=== PATIENT | male | born 1940 | race Caucasian/White ===

== ENCOUNTER 2019-01-25 05:34 | Day surgery (SDC) | payer MEDICARE, OTHER ==
[~2019-01-25] VITALS: Ht 177.8 cm; Wt 84.0 kg
[~2019-01-25 05:34] MED LIST: AMLO5 PO; ASPI325 PO; ATOR40TA PO; Acidophilus La100 GM; CENTRUM SILVER1 EAC2 PO; CHLO10 PO; CHOL10002; CIME400 PO; CROMNS; ESCI20; FOSI10; HYDACE5 PO; IPRAIS NEB; LISI20 PO; METO25; MONT10T PO; NAPR220 PO; NITR.6SL SL; STIOLTO RESPIMAT4 GM IH
[2019-01-25] MEDS ORDERED: Isosorbide Mono30 MG PO (09:55)
--- NOTE | 2019-01-25 10:30 | NUR ---
10cc air removed from R wrist TR Band. -bleeding or swelling.
--- NOTE | 2019-01-25 11:30 | NUR ---
RIGHT GROIN SITE SOFT AND NON-TENDER. NO BLEEDING OR SWELLING. AT BEDSIDE.
--- NOTE | 2019-01-25 12:30 | NUR ---
PT UP TO THE BATHROOM /C SBA. TOLERATED WELL. -BLEEDING OR SWELLING R GROIN AND WRIST. TR BAND REMOVED FROM R WRIST. PUNCTURE AREA CLEANED WITH NS AND CLOTH DOT DRSG PLACED. R WRIST SPLINT REAPPLIED. PT AND VERBALIZED UNDERSTANDING OF WRITTEN AND VERBAL D/C INST. IV REMOVED. PT TAKEN OUT OF HRT CENTER VIA W/C.
== END 2019-01-25 12:30 | disposition home or self-care (01) ==
LOC: MHTC 05:34
PROC: B205YZZ Plain Radiography of Left Heart using Other Contrast (ICD-10-PCS; principal; 2019-01-25)
PROC: 4A023N7 Measurement of Cardiac Sampling and Pressure, Left Heart, Percutaneous Approach (ICD-10-PCS; principal; 2019-01-25)
PROC: B201YZZ Plain Radiography of Multiple Coronary Arteries using Other Contrast (ICD-10-PCS; principal; 2019-01-25)
PROC: B203YZZ Plain Radiography of Multiple Coronary Artery Bypass Grafts using Other Contrast (ICD-10-PCS; principal; 2019-01-25)
DX: I25.719 Atherosclerosis of autologous vein coronary artery bypass graft(s) with unspecified angina pectoris (principal); I25.119 Atherosclerotic heart disease of native coronary artery with unspecified angina pectoris; F17.210 Nicotine dependence, cigarettes, uncomplicated; E78.00 Pure hypercholesterolemia, unspecified; I10 Essential (primary) hypertension; I25.2 Old myocardial infarction; J44.9 Chronic obstructive pulmonary disease, unspecified; K21.9 Gastro-esophageal reflux disease without esophagitis; I70.90 Unspecified atherosclerosis; F41.9 Anxiety disorder, unspecified; Z79.82 Long term (current) use of aspirin; Z79.899 Other long term (current) drug therapy
CPT/HCPCS: 85347; 93455; 99152; 99153; C1769; C1894; J1644; J2250; J3010; J7030; Q9967

== ENCOUNTER 2020-01-30 10:56 | Inpatient (IN) | payer OTHER, MEDICARE ==
[~2020-01-30] VITALS: Ht 180.3 cm; Wt 78.7 kg
[~2020-01-30 10:56] MED LIST changes: -ASPI325 PO; +ASPI325EC PO; -CENTRUM SILVER1 EAC2 PO; -CHOL10002; +Isosorbide Mono30 MG PO; +MULTI VITAMIN1 EACH PO; +VITAMIN D31000 UNI1 PO
[2020-01-30 12:08] LABS: BASOPHILS ABSOLUTE AUTO 0.05 K/mm3 (0.00-0.23); BASOPHILS PERCENT AUTO 1 % (0-2); EOSINOPHILS ABSOLUTE AUTO 0.22 K/mm3 (0.00-0.68); EOSINOPHILS PERCENT AUTO 3 % (0-6); Hematocrit 45.2 % (37.0-53.0); Hemoglobin 15.1 g/dL (13.5-17.5); IMMATURE GRAN ABSOLUTE AUTO 0.02 K/mm3 (0.00-0.10); IMMATURE GRAN PERCENT AUTO 0 % (0-1); LYMPHOCYTES ABSOLUTE AUTO 1.13 K/mm3 (0.84-5.20); LYMPHOCYTES PERCENT AUTO 17 % (21-46); MONOCYTES ABSOLUTE AUTO 0.46 K/mm3 (0.16-1.47); MONOCYTES PERCENT AUTO 7 % (4-13); Mean Corpuscular HGB 33.4 pg (26.0-34.0); Mean Corpuscular HGB Conc 33.4 g/dL (31.5-36.5); Mean Corpuscular Volume 100 fL (80-100); Mean Platelet Volume 9.1 fL (9.1-12.4); NEUTROPHILS ABSOLUTE AUTO 4.62 K/mm3 (1.96-9.15); NEUTROPHILS PERCENT AUTO 71 % (41-73); Platelet Count 157 K/mm3 (150-400); RDW Coefficient Variation 12.1 % (11.7-14.2); RDW Standard Deviation 45.1 fL (35.1-46.3); Red Blood Cell Count 4.52 M/mm3 (4.30-5.90)
[2020-01-30 12:09] LABS: Source, Urine Voided
[2020-01-30 12:11] LABS: Bilirubin, Urine Neg (Neg); Blood, Urine 3+ (Neg); Glucose Qualitative, Urine Neg (Neg); Ketones, Urine 1+ (Neg); Leukocyte Esterase, Urine Neg (Neg); Nitrite, Urine Neg (Neg); Protein, Urine 1+ (Neg); Urobilinogen, Urine NORM (Normal)
[2020-01-30 12:18] LABS: Appearance, Urine Clear (Clear); Color, Urine Yellow (P-Yellow)
[2020-01-30 12:20] LABS: Bacteria Rare /hpf; Squamous Epithelial Cells Not Seen /hpf (Few); White Blood Cells, Urine Not Seen /hpf (0-5)
[2020-01-30 12:34] LABS: Alanine Aminotransfer (ALT/SGP 28 U/L (12-78); Albumin, Blood 3.2 g/dL (3.4-5.0); Alk Phos 136 U/L (50-136); Anion Gap 6 mmol/L (6-16); Aspartate Aminotrans (AST/SGOT 20 U/L (12-37); Bilirubin, Total 0.6 mg/dL (0.1-1.0); Blood Urea Nitrogen 9 mg/dL (8-24); Bun/Creatinine Ratio 11.5 (12.0-20.0); CO2, Blood 29 mmol/L (21-32); Chloride, Blood 105 mmol/L (98-108); Creatinine, Blood 0.78 mg/dL (0.60-1.20); Globulin, Blood 3.1 g/dL (2.2-4.0); Glomerular Filtration Rate >60 (60-); Glucose, Blood 127 mg/dL (70-99); Potassium, Blood 3.9 mmol/L (3.5-5.5); Sodium, Blood 140 mmol/L (136-145); Total Protein, Blood 6.3 g/dL (6.4-8.2); Troponin I 0.102 ng/mL (0.000-0.040)
[2020-01-30] MEDS ORDERED: CHLO10 PO (13:06)
[2020-01-30] MEDS ORDERED: LISI20 PO (13:07)
[2020-01-30] MEDS ORDERED: ATOR40TA PO (13:07)
[2020-01-30] MEDS ORDERED: STIOLTO RESPIMAT4 G1 INH (13:07)
[2020-01-30] MEDS ORDERED: MONT10T PO (13:07)
[2020-01-30] MEDS ORDERED: AMLODIPINE BESYL5 MG PO (13:07)
[2020-01-30] MEDS ORDERED: METOPROLOL TART25 MG PO (13:08)
[2020-01-30] MEDS ORDERED: Ventolin/Prove6.7 GM INH (13:09)
[2020-01-30] MEDS ORDERED: NITR.4SL SL (15:01)
[2020-01-30 18:25] LABS: International Normalized Ratio 1.07; Prothrombin Time Results 11.4 Sec (9.7-11.5)
[2020-01-31 03:16] LABS: BASOPHILS ABSOLUTE AUTO 0.05 K/mm3 (0.00-0.23); BASOPHILS PERCENT AUTO 1 % (0-2); EOSINOPHILS ABSOLUTE AUTO 0.26 K/mm3 (0.00-0.68); EOSINOPHILS PERCENT AUTO 4 % (0-6); Hematocrit 42.2 % (37.0-53.0); Hemoglobin 14.2 g/dL (13.5-17.5); IMMATURE GRAN ABSOLUTE AUTO 0.01 K/mm3 (0.00-0.10); IMMATURE GRAN PERCENT AUTO 0 % (0-1); LYMPHOCYTES ABSOLUTE AUTO 1.37 K/mm3 (0.84-5.20); LYMPHOCYTES PERCENT AUTO 21 % (21-46); MONOCYTES ABSOLUTE AUTO 0.57 K/mm3 (0.16-1.47); MONOCYTES PERCENT AUTO 9 % (4-13); Mean Corpuscular HGB 33.2 pg (26.0-34.0); Mean Corpuscular HGB Conc 33.6 g/dL (31.5-36.5); Mean Corpuscular Volume 99 fL (80-100); Mean Platelet Volume 8.7 fL (9.1-12.4); NEUTROPHILS ABSOLUTE AUTO 4.35 K/mm3 (1.96-9.15); NEUTROPHILS PERCENT AUTO 66 % (41-73); Platelet Count 162 K/mm3 (150-400); RDW Coefficient Variation 12.1 % (11.7-14.2); Red Blood Cell Count 4.28 M/mm3 (4.30-5.90); White Blood Cell Count 6.61 K/mm3 (4.00-11.30)
[2020-01-31 03:33] LABS: Anion Gap 3 mmol/L (6-16); Blood Urea Nitrogen 10 mg/dL (8-24); Bun/Creatinine Ratio 11.8 (12.0-20.0); CHOL/HDL RATIO 2.9; CO2, Blood 32 mmol/L (21-32); Calcium, Blood 8.7 mg/dL (8.5-10.1); Chloride, Blood 103 mmol/L (98-108); Cholesterol 140 mg/dL (50-200); Creatinine, Blood 0.85 mg/dL (0.60-1.20); Glomerular Filtration Rate >60 (60-); Glucose, Blood 126 mg/dL (70-99); HDL Cholesterol 49 mg/dL (>39); LDL/HDL RATIO 1.4; Low Density Lipoprotein Chol 69 mg/dL (0-110); Magnesium, Blood 2.2 mg/dL (1.6-2.4); Phosphorus, Blood 2.4 mg/dL (2.5-4.9); Potassium, Blood 3.8 mmol/L (3.5-5.5); Sodium, Blood 138 mmol/L (136-145); Triglycerides 108 mg/dL (30-160); Very Low Density Lipoprot Chol 22 mg/dL (6-32)
[2020-02-01 05:22] LABS: BASOPHILS ABSOLUTE AUTO 0.04 K/mm3 (0.00-0.23); BASOPHILS PERCENT AUTO 1 % (0-2); EOSINOPHILS ABSOLUTE AUTO 0.32 K/mm3 (0.00-0.68); EOSINOPHILS PERCENT AUTO 5 % (0-6); Hematocrit 41.6 % (37.0-53.0); Hemoglobin 14.1 g/dL (13.5-17.5); IMMATURE GRAN ABSOLUTE AUTO 0.01 K/mm3 (0.00-0.10); IMMATURE GRAN PERCENT AUTO 0 % (0-1); LYMPHOCYTES ABSOLUTE AUTO 1.19 K/mm3 (0.84-5.20); LYMPHOCYTES PERCENT AUTO 17 % (21-46); MONOCYTES ABSOLUTE AUTO 0.65 K/mm3 (0.16-1.47); MONOCYTES PERCENT AUTO 9 % (4-13); Mean Corpuscular HGB 33.6 pg (26.0-34.0); Mean Corpuscular HGB Conc 33.9 g/dL (31.5-36.5); Mean Corpuscular Volume 99 fL (80-100); Mean Platelet Volume 8.9 fL (9.1-12.4); NEUTROPHILS PERCENT AUTO 68 % (41-73); Platelet Count 154 K/mm3 (150-400); RDW Coefficient Variation 12.2 % (11.7-14.2); RDW Standard Deviation 44.2 fL (35.1-46.3); White Blood Cell Count 7.01 K/mm3 (4.00-11.30)
[2020-02-01 05:46] LABS: Anion Gap 5 mmol/L (6-16); Blood Urea Nitrogen 10 mg/dL (8-24); Bun/Creatinine Ratio 12.2 (12.0-20.0); CO2, Blood 31 mmol/L (21-32); Chloride, Blood 103 mmol/L (98-108); Creatinine, Blood 0.82 mg/dL (0.60-1.20); Glomerular Filtration Rate >60 (60-); Glucose, Blood 130 mg/dL (70-99); Potassium, Blood 3.7 mmol/L (3.5-5.5); Sodium, Blood 139 mmol/L (136-145)
[2020-02-01] MEDS ORDERED: CLOP75 PO (11:55)
[2020-02-01] MEDS ORDERED: PEPCID20 MG PO (11:57)
[2020-02-01] MEDS ORDERED: ISOSORBIDE MONO30 MG PO (12:00)
== END 2020-02-01 12:59 | disposition home or self-care (01) | DRG 282 ==
LOC: ER 10:56 → PCU 13:52 → MEDS 01-31 17:29
PROVIDERS: Emergency Medicine; ADMIT Internal Medicine
DX: I21.4 Non-ST elevation (NSTEMI) myocardial infarction (principal); I10 Essential (primary) hypertension; E11.9 Type 2 diabetes mellitus without complications; I71.9 Aortic aneurysm of unspecified site, without rupture; E78.5 Hyperlipidemia, unspecified; Z66 Do not resuscitate; I25.10 Atherosclerotic heart disease of native coronary artery without angina pectoris; I25.5 Ischemic cardiomyopathy; I73.9 Peripheral vascular disease, unspecified; J44.9 Chronic obstructive pulmonary disease, unspecified; F43.10 Post-traumatic stress disorder, unspecified; F17.210 Nicotine dependence, cigarettes, uncomplicated; Z95.1 Presence of aortocoronary bypass graft; Z86.73 Personal history of transient ischemic attack (TIA), and cerebral infarction without residual deficits; Z79.82 Long term (current) use of aspirin
CPT/HCPCS: 36415; 71045; 74019; 80048; 80053; 80061; 81001; 83036; 83690; 83735; 84100; 84484; 85025; 85610; 85730; 93005; 93010; 93306; 94640; 94760; 99285-25; A9270-GY; J1644

== ENCOUNTER 2020-02-09 18:16 | Emergency (ER) | payer OTHER, MEDICARE ==
[~2020-02-09] VITALS: Ht 180.3 cm; Wt 81.7 kg
[~2020-02-09 18:16] MED LIST changes: +AMLODIPINE BESYL5 MG PO; +CLOP75 PO; +ISOSORBIDE MONO30 MG PO; +METOPROLOL TART25 MG PO; +NITR.4SL SL; +PEPCID20 MG PO; +STIOLTO RESPIMAT4 G1 INH; +Ventolin/Prove6.7 GM INH
[2020-02-09 18:43] LABS: BASOPHILS ABSOLUTE AUTO 0.06 K/mm3 (0.00-0.23); BASOPHILS PERCENT AUTO 1 % (0-2); EOSINOPHILS ABSOLUTE AUTO 0.29 K/mm3 (0.00-0.68); EOSINOPHILS PERCENT AUTO 3 % (0-6); Hematocrit 46.6 % (37.0-53.0); Hemoglobin 15.6 g/dL (13.5-17.5); IMMATURE GRAN ABSOLUTE AUTO 0.04 K/mm3 (0.00-0.10); IMMATURE GRAN PERCENT AUTO 0 % (0-1); LYMPHOCYTES ABSOLUTE AUTO 1.36 K/mm3 (0.84-5.20); LYMPHOCYTES PERCENT AUTO 14 % (21-46); MONOCYTES ABSOLUTE AUTO 0.96 K/mm3 (0.16-1.47); MONOCYTES PERCENT AUTO 10 % (4-13); Mean Corpuscular HGB 33.1 pg (26.0-34.0); Mean Corpuscular HGB Conc 33.5 g/dL (31.5-36.5); Mean Corpuscular Volume 99 fL (80-100); Mean Platelet Volume 9.2 fL (9.1-12.4); NEUTROPHILS ABSOLUTE AUTO 6.98 K/mm3 (1.96-9.15); NEUTROPHILS PERCENT AUTO 72 % (41-73); Platelet Count 243 K/mm3 (150-400); RDW Coefficient Variation 12.2 % (11.7-14.2); RDW Standard Deviation 44.8 fL (35.1-46.3); Red Blood Cell Count 4.71 M/mm3 (4.30-5.90); White Blood Cell Count 9.69 K/mm3 (4.00-11.30)
[2020-02-09 19:00] LABS: Alanine Aminotransfer (ALT/SGP 28 U/L (12-78); Albumin, Blood 3.1 g/dL (3.4-5.0); Albumin/Globulin Ratio 0.9 (0.8-1.8); Alk Phos 183 U/L (50-136); Anion Gap 9 mmol/L (6-16); Aspartate Aminotrans (AST/SGOT 26 U/L (12-37); Bilirubin, Total 0.7 mg/dL (0.1-1.0); Blood Urea Nitrogen 8 mg/dL (8-24); CO2, Blood 27 mmol/L (21-32); Chloride, Blood 102 mmol/L (98-108); Globulin, Blood 3.5 g/dL (2.2-4.0); Glomerular Filtration Rate >60 (60-); Glucose, Blood 133 mg/dL (70-99); Potassium, Blood 4.5 mmol/L (3.5-5.5); Sodium, Blood 138 mmol/L (136-145); Total Protein, Blood 6.6 g/dL (6.4-8.2)
== END 2020-02-09 23:37 | disposition home or self-care (01) ==
LOC: ER 18:16
PROVIDERS: Student in an Organized Health Care Education/Training Program
DX: K59.00 Constipation, unspecified (principal); J44.9 Chronic obstructive pulmonary disease, unspecified; F41.9 Anxiety disorder, unspecified; I25.2 Old myocardial infarction; F17.210 Nicotine dependence, cigarettes, uncomplicated; Z79.899 Other long term (current) drug therapy; Z79.82 Long term (current) use of aspirin; Z79.02 Long term (current) use of antithrombotics/antiplatelets; Z95.5 Presence of coronary angioplasty implant and graft
CPT/HCPCS: 74177; 80053; 83690; 84484; 85025; 93005; 93010; 96361; 96374-59; 99284-25; J2270; J7030; Q9967

== ENCOUNTER 2020-02-18 01:08 | Inpatient (IN) | payer OTHER, MEDICARE ==
[~2020-02-18] VITALS: Ht 180.3 cm; Wt 77.5 kg
[2020-02-18 02:27] LABS: BASOPHILS ABSOLUTE AUTO 0.07 K/mm3 (0.00-0.23); BASOPHILS PERCENT AUTO 1 % (0-2); EOSINOPHILS ABSOLUTE AUTO 0.33 K/mm3 (0.00-0.68); EOSINOPHILS PERCENT AUTO 3 % (0-6); Hematocrit 44.7 % (37.0-53.0); IMMATURE GRAN ABSOLUTE AUTO 0.07 K/mm3 (0.00-0.10); IMMATURE GRAN PERCENT AUTO 1 % (0-1); LYMPHOCYTES ABSOLUTE AUTO 0.88 K/mm3 (0.84-5.20); LYMPHOCYTES PERCENT AUTO 9 % (21-46); MONOCYTES ABSOLUTE AUTO 0.66 K/mm3 (0.16-1.47); MONOCYTES PERCENT AUTO 7 % (4-13); Mean Corpuscular HGB 33.2 pg (26.0-34.0); Mean Corpuscular HGB Conc 33.6 g/dL (31.5-36.5); Mean Corpuscular Volume 99 fL (80-100); NEUTROPHILS ABSOLUTE AUTO 7.63 K/mm3 (1.96-9.15); NEUTROPHILS PERCENT AUTO 79 % (41-73); RDW Coefficient Variation 12.6 % (11.7-14.2); Red Blood Cell Count 4.52 M/mm3 (4.30-5.90); White Blood Cell Count 9.64 K/mm3 (4.00-11.30)
[2020-02-18 02:30] LABS: Mean Platelet Volume 9.5 fL (9.1-12.4); Platelet Count 190 K/mm3 (150-400)
[2020-02-18 02:37] LABS: Alanine Aminotransfer (ALT/SGP 33 U/L (12-78); Albumin, Blood 2.6 g/dL (3.4-5.0); Albumin/Globulin Ratio 0.8 (0.8-1.8); Alk Phos 220 U/L (50-136); Anion Gap 5 mmol/L (6-16); Aspartate Aminotrans (AST/SGOT 27 U/L (12-37); Bilirubin, Total 0.6 mg/dL (0.1-1.0); Blood Urea Nitrogen 11 mg/dL (8-24); Bun/Creatinine Ratio 14.2 (12.0-20.0); CO2, Blood 30 mmol/L (21-32); Calcium, Blood 8.8 mg/dL (8.5-10.1); Chloride, Blood 102 mmol/L (98-108); Creatinine, Blood 0.77 mg/dL (0.60-1.20); Globulin, Blood 3.3 g/dL (2.2-4.0); Glomerular Filtration Rate >60 (60-); Glucose, Blood 153 mg/dL (70-99); Potassium, Blood 3.9 mmol/L (3.5-5.5); Sodium, Blood 137 mmol/L (136-145); Total Protein, Blood 5.9 g/dL (6.4-8.2)
[2020-02-18 02:44] LABS: Troponin I 0.726 ng/mL (0.000-0.040)
[2020-02-18 04:21] LABS: Influenza A, PCR Negative (NEGATIVE); Influenza B, PCR Negative (NEGATIVE); Resp Syncytial Virus, PCR Negative (NEGATIVE); SARS-Cov-2 (COVID-19) PCR, MMC Negative (NEGATIVE)
[2020-02-18] MEDS ORDERED: LISI5 PO (06:19)
[2020-02-18] MEDS ORDERED: Aspir 8181 MG PO (06:19)
[2020-02-18] MEDS ORDERED: ATOR40TA PO (06:22)
[2020-02-18] MEDS ORDERED: CHLO10 PO (06:23)
[2020-02-18] MEDS ORDERED: Isosorbide Mono30 MG PO (06:25)
[2020-02-18] MEDS ORDERED: PLAVIX75 MG PO (06:25)
[2020-02-18 09:37] LABS: Source, Urine Clean Catch
[2020-02-18 09:49] LABS: Appearance, Urine Clear (Clear); Bilirubin, Urine Neg (Neg); Blood, Urine 3+ (Neg); Color, Urine Yellow (P-Yellow); Glucose Qualitative, Urine Neg (Neg); Ketones, Urine Neg (Neg); Leukocyte Esterase, Urine 1+ (Neg); Nitrite, Urine Neg (Neg); Protein, Urine 2+ (Neg); Specific Gravity, Urine 1.015 (1.003-1.022); Urobilinogen, Urine 1+ (Normal)
[2020-02-18 10:11] LABS: Bacteria Rare /hpf; Granular Casts 0-2 /lpf (0); Hyaline Casts 0-2 /lpf (0-2); Squamous Epithelial Cells Rare /hpf (Few); White Blood Cells, Urine 0-2 /hpf (0-5)
--- NOTE | 2020-02-18 18:44 | NUR ---
PT ADMIT FROM ER FOR C/O NSTEMI, PT WITH ELEVATED TROPONIN LEVELS. 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 PT PENDING PALLIATIVE CARE CONSULT, VANESSA IBARRA NOTIFIED VIA [employer]. PT A&O UPON ARRIVAL TO ROOM, PLACED ON TELEMETRY WITH SINUS RHYTHM READING, WEAKNESS CONTINUES. WILL CONTINUE TO MONITOR AND TREAT ACCORDINGLY.
--- NOTE | 2020-02-19 05:51 | NUR ---
SHIFT SUMMARY PT IS ALERT AND ORIENTED, FRUSTRATED WITH CONDTION AND CARE. PT ON NC AT 3LPM WITH O2 SATS IN THE 90'S, HE IS ON 3LPM NC AT HOME WHEN SLEEPING. PT TAKES ALBUTEROL AT HOME AND REQUESTED IT DUE TO FEELING OF TIGHT CHEST AND DIFFICULTY BREATHING. PT RECIEVED TREATMENT AND HE STATED IT HELPED LOOSEN HIS CHEST. HE HAD A WEAK UNPRODUCTIVE COUGH AFTER. BP WAS 149/99 AT START OF SHIFT AND DOWN TO 122/79 BY END OF SHIFT. HR WAS IN THE HIGH 90'S AND PT DENIED ANY CHEST PAIN. PT HAD NO MORNING LABS. PT HAD AN UNEVENTFUL NIGHT. WILL CONTINUE TO MONITOR UNTIL SHIFT CHANGE.
--- NOTE | 2020-02-19 10:52 | NUR ---
RECEIVED REPORT FROM GRETCHEN PRITCHARD. ASSUMING CARE OF PT. PT ALERT AND ORIENTED, DENIES SOB OR CHEST TIGHTNESS THUS FAR THIS AM. PT DOES STATE FRUSTRATION ABOUT SOME HOME MEDICATIONS MISSING FROM HIS EMAR, THIS RN WROTE MISSING MEDICATIONS ON WHITEBOARD IN ROOM FOR DR TO SEE UPON ROUNDING. PT'S DAUGHTER UPDATED VIA PHONE CALL ON PT STATUS AND PLAN FOR PALLIATIVE CARE CONSULT. PT RESTING QUIETLY IN BED WITH TV ON AND CALL LIGHT WITHIN REACH.
--- NOTE | 2020-02-19 12:10 | NUR ---
Reviewed chart and called Pt's oncology office. Oncology staff reports speaking with Dr Hickman who feels hospice and comfort care would be appropriate. No treatment options are available for Pt. Pt resting in bed and is A&OX4. Pt reports a tolerable 2/10 pain in his abdomen. Pt reports mild but manageable dyspnea and anxiety. Engaged in therapeutic conversation regarding goals of care. Listened as Pt reports wishing to avoid hospitalizations. Continued therapeutic listening and validated concerns. Discussed comfort care and hospice as an option. Educated on comfort care and hospice philosophy with V/U made by Pt. Pt states "that's what I want". Confirmed with Pt regarding code status with Pt wishing to be DNR. Continued therapeutic listening. Pt is a and reports serving in the [employer] for 26 years and [employer] for 22 years. This RN thanked him for his services. Pt agreeable for this RN to call family and discuss his decision. Called and spoke with Pt's SO Radha. Therapeutic discussion took place regarding Pt's goals of care. Educated on comfort care and hospice philosophy with V/U made by Radha. Radha is agreeable with Pt's choice. Discussed hospice agencies to choose from. Radha would like hospice agency available the soonest. Called and spoke with Pt's daughter Carmen. Therapeutic discussion took place regarding Pt's choice. Educated on comfort care and hospice philosophy with V/U murphy by Carmen. Carmen also agreeable with Pt's decision to focus on comfort. Spoke with Dr Harrington and discussed case. Dr Harrington agreeable with plan. Placed orders for comfort care, comfort care order set and D/C maintenance medications per V/O from Dr Harrington. Continued cardiac medications for comfort. Left voice mail with [facility] Nurse Karen regarding hospice agency. Spoke with Bedside GRETCHEN Mireles and discussed case. Palliative Care will remain available for symptom management and supportive visits.
--- NOTE | 2020-02-19 13:07 | NUR ---
DR SPARROW AND ARPIT WITH PALLIATIVE CARE TO AND FROM ROOM TO DISCUSS PLAN OF CARE WITH PT. PT TRANSITIONING TO COMFORT CARE WHILE IN HOSPITAL AND HOSPICE WHEN DC'D HOME. ARPIT STATES HE HAS NOTIFIED PT'S SIGNIFICANT OTHER AND DAUGHTER OF PT'S DECISION. REPORT HAS BEEN GIVEN TO GRETCHEN OWENS TO RECEIVE PT IN MEDICAL DEPT.
--- NOTE | 2020-02-19 17:58 | NUR ---
SHIFT SUMMARY/TRANSFER TO MEDICAL FLOOR PT TRANSFERRED FROM PCU TO MEDICAL FLOOR AT APPROX 1345. PT ACCOMPANIED BY SIGNIFICANT OTHER, BRITNEY. REPORT TAKEN FROM GRETCHEN JACKSON. PT NEWLY PLACED ON COMFORT CARE. ORIENTED TO THE ROOM. PT AxOx4. REPORTS "4" LEVEL PAIN IN ABDOMEN. ROXANOL GIVEN. NICOTINE PATCH ORDERED AND APPLIED PER PT REQUEST. PATIENT DECLINED DINNER D/T NO APPETITE. CURRENTLY RESTING IN BED WITH CALL LIGHT IN REACH. DENIES ANY NEEDS AT THIS TIME. SHILO PERSAUD IS WORKING WITH FAMILY TO TRANSITION HOME ON HOSPICE, POSS DC 02/21/20.
--- NOTE | 2020-02-19 22:24 | NUR ---
2017 PT LYING IN BED, REPORTS A LITTEL SOB, ON RA, NO VS AT THIS TIME PT IS COMFORT CARE. REPORTS PAIN IN "INTESTINE", GAVE ROXANOL, WILL EVAL FOR EFFECT. REQUESTING NOLASCO TO BE PLACED, WILL PLACE SOON POSSIBLE, PT OK WITH THAT. REQUESTING COUGH DROPS, WILL ASK DR WHEN SOMEONE CALLS, PT IS OK WITH THAT . NO OTHER APPARENT SIGNS OF DISTRESS. CALL LIGHT IS IN REACH. PT DOES APPEAR A LITTLE DEPRESSED.
--- NOTE | 2020-02-19 22:27 | NUR ---
2206 PLACED NOLASCO PER PT REQUEST, HOWEVER THE PT LEAKED URINE AROUND THE 14 DANISH SO TRIED A 16 DANISH COUDE AND THAT WORKED MUCH BETTER. PT TOLERATED PROCEDURE WELL. GOT ORDERS FOR COUGH DROPS, GAVE PT ONE AND PLACED THE REST ON THE BEDSIDE TABLE. WILL EVAL FOR EFFECT. NO OTHER APPARENT SIGNS OF DISTRESS. CALL LIGHT IS IN REACH.
--- NOTE | 2020-02-19 23:00 | NUR ---
PT LYING IN BED, EYES CLOSED, APPEARS TO BE RESTING. BREATHING IS EVEN, UNLABORED. NO APPARENT SIGNS OF DISTRESS. CALL LIGHT IS IN REACH.
--- NOTE | 2020-02-20 00:36 | NUR ---
PT LYING IN BED, EYES CLOSED, APPEARS TO BE RESTING. BREATHING IS EVEN, UNLABORED. NO APPARENT SIGNS OF DISTRESS. CALL LIGHT IS IN REACH.
--- NOTE | 2020-02-20 02:34 | NUR ---
ASSITED PROBLEM MANAGER IN TURNING PT. PT DENIES NEED FOR ANYTHING AT THIS TIME. NO APPARENT SIGNS OF DISTRESS. CALL LIGHT IS IN REACH.
--- NOTE | 2020-02-20 05:35 | NUR ---
ASSISTED SURVEY CREW CHIEF IN TURNING PT. PT TOLERATED WELL. WANTS TO BRUSH HIS TEETH, SAYS HE CAN DO IT ON HIS OWN, SET HIS STUFF UP ON HIS TABLE FOR HIM TO BRUSH HIS TEETH, WILL CHECK BACK IN A LITTLE WHILE TO SEE HOW HE IS DOING WITH IT. NO OTHER APPARENT SIGNS OF DISTRESS. CALL LIGHT IS IN REACH. NO OTHER CHANGES THIS SHIFT.
--- NOTE | 2020-02-20 05:35 | NUR ---
0400 PT LYING IN BED, EYES CLOSED, APPEARS TO BE RESTING. WAKES EASILY TO VERBAL STIMULI. NO APPARENT SIGNS OF DISTRESS. CALL LIGHT IS IN REACH.
--- NOTE | 2020-02-20 05:37 | NUR ---
PT IS AAO X 4, A LITTLE SOB, ON RA. NO VS PT IS COMFORT CARE. REPORTS INTESTINAL PAIN, GOT ROXANOL AT HS, HAS ALSO BEEN USING A HEATING PAD AND THAT HAS SEEMED TO WORK BETTER FOR HIM THAN THE ROXANOL.
--- NOTE | 2020-02-20 09:59 | NUR ---
Comfort Care Visit Pt resting in bed and reports moderate pain in his abdomen, neck, and buttocks. Pt agreeable with repositioning and is requesting pain medication. Assisted RN Courtney with repositioning. Discussed case with Bedside RNs Courtney and Ragini. Palliative Care will remain available.
--- NOTE | 2020-02-20 17:27 | NUR ---
SHIFT ASSESSMENT PT AxOx3-4. SLEEPING A LOT TODAY. C/O PAIN IN KNEES- CHRONIC AND ADB PAIN. MEDICATED PER EMAR. IN FOR VISIT TODAY. UPDATED DAUGHTER ON PHONE. CASE MANAGEMENT IS WORKING ON DC HOME ON HOSPICE. PLAN IS TO DC TOMORROW. SOME ITCHING ON ABDOMEN. AGREEABLE TO FOAM PLACMENT TO PREVENT SKIN BREAKDOWN. PT CURRENTLY RESTING IN BED WITH CALL LIGHT IN REACH.
--- NOTE | 2020-02-20 20:06 | NUR ---
1930 PT LYING IN BED, REPORTS PAIN IN ABD AND KNEES, STATES IT IS TOLERABLE AND HE DOES NOT FEEL LIKE HE NEEDS ANYTHING MORE FOR IT AT THIS TIME. PT IS USING A HEATING PAD ON BOTH AREAS. REPORTS A LITTLE SOB, HE IS ON 3L O2 NC. NO VS AT THIS TIME PT IS COMFORT CARE. PT HAS SOME SCRATCHES ON ABD WHERE HE WAS SCRATCHING HIS BELLY ON DAY SHIFT, IT IS COVERED BY A DRESSING, C/D/I. NO OTHER APPARENT SIGNS OF DISTRESS. CALL LIGHT IS IN REACH.
--- NOTE | 2020-02-20 23:04 | NUR ---
2200 PT LYING IN BED, AWAKE, REPORTED TO LEAD CAREGIVER THAT HIS L HAND IS CRAMPING, DECLINES PAIN MEDICATIONS FOR IT AT THIS TIME. WILL CONT. TO MONITOR. NO OTHER APPARENT SIGNS OF DISTRESS. CALL LIGHT IS IN REACH.
--- NOTE | 2020-02-21 00:27 | NUR ---
PT LYING IN BED, ON 3L O2 NC, HEATING PAD IN USE. NO APPARENT SIGNS OF DISTRESS. BREATHING IS EVEN, UNLABORED. EYES CLOSED, APPEARS TO BE RESTING. CALL LIGHT IS IN REACH.
--- NOTE | 2020-02-21 02:06 | NUR ---
PT LYING IN BED, EYES CLOSED, APPEARS TO BE RESTING. ON 3L O2 NC. BREATHING IS EVEN, UNLABORED. NO APPARENT SIGNS OF DISTRESS. HEATING PAD IN USE. CALL LIGHT IS IN REACH.
--- NOTE | 2020-02-21 04:26 | NUR ---
PT IS LYING IN BED, EYES CLOSED, APPEARS TO BE RESTING. BREATHING IS EVEN, UNLABORED. NO APPARENT SIGNS OF DISTRESS. CALL LIGHT IS IN REACH.
--- NOTE | 2020-02-21 04:28 | NUR ---
PTIS AAO X 4, ON 3L NC O2. A LITTLE SOB. REPORTS PAIN IN ABD AND KNEES, USING HEATING PAD. HAD DRESSING ON ABD COVERING SCRATCHES. ABD DISTENDED AND TENDER. NOLASCO.
--- NOTE | 2020-02-21 05:32 | NUR ---
ASSISTED HEALTH DIAGNOSTICS TEACHER IN TURNING PT. GAVE PT A COUGH DROP. NO OTHER APPARENT SIGNS OF DISTRESS. CALL LIGHT IS IN REACH. NO OTHER CHANGES THIS SHIFT.
--- NOTE | 2020-02-21 11:32 | NUR ---
DISCHARGED PT DISCHARGED AT 1130. PT TRANSPORTED BY [facility] VIA [facility] WITH BELONGINGS TO HOME ON HOSPICE. PT FAMILY AWARE OF DEPARTURE.
== END 2020-02-21 11:38 | disposition hospice, home (50) | DRG 280 ==
LOC: ER 01:08 → PCU 01:09 → ERHOLD 01:09 → PCU 11:49 → MEDS 02-19 13:50
PROVIDERS: Emergency Medicine; ADMIT Internal Medicine
DX: I21.4 Non-ST elevation (NSTEMI) myocardial infarction (principal); I26.99 Other pulmonary embolism without acute cor pulmonale; C25.9 Malignant neoplasm of pancreas, unspecified; C78.7 Secondary malignant neoplasm of liver and intrahepatic bile duct; J96.11 Chronic respiratory failure with hypoxia; R18.0 Malignant ascites; C78.6 Secondary malignant neoplasm of retroperitoneum and peritoneum; C78.89 Secondary malignant neoplasm of other digestive organs; Z99.81 Dependence on supplemental oxygen; Z79.82 Long term (current) use of aspirin; I25.2 Old myocardial infarction; J44.9 Chronic obstructive pulmonary disease, unspecified; Z51.5 Encounter for palliative care; Z95.1 Presence of aortocoronary bypass graft; K58.9 Irritable bowel syndrome, unspecified; F17.210 Nicotine dependence, cigarettes, uncomplicated; Z20.828 Contact with and (suspected) exposure to other viral communicable diseases; I10 Essential (primary) hypertension; E11.9 Type 2 diabetes mellitus without complications; I71.9 Aortic aneurysm of unspecified site, without rupture; I25.10 Atherosclerotic heart disease of native coronary artery without angina pectoris; E78.5 Hyperlipidemia, unspecified; R62.7 Adult failure to thrive; Z68.24 Body mass index [BMI] 24.0-24.9, adult; Z98.52 Vasectomy status; Z66 Do not resuscitate
CPT/HCPCS: 0241U; 36415; 71260; 74177; 80053; 81001; 82947; 83605; 83690; 83735; 84484; 85025; 85730; 87040; 87086; 93005; 93010; 94640; 94760; 96365-59; 96366; 96372; 96375-59; 96376-59; 99285-25; A9270; A9270-GY; G0378; J1644; J1650; J2270; Q9967